=== PATIENT | female | born 1980 | race Caucasian/White ===

== ENCOUNTER 2016-10-28 07:11 | Emergency (ER) | payer OTHER ==
[~2016-10-28] VITALS: Ht 162.6 cm; Wt 90.9 kg
[2016-10-28 07:13] VITALS: BP 141/91; PULSE 89; RESP 15; O2SAT 98
--- NOTE | 2016-10-28 07:35 | ED.REPORT ---
HPI-Abd Pain F Under 38 Date of Service October 28, 2016 ED Provider: Linus Delgado MD The patient is a 36 year old female w/ a hx of PCOS who presents to the ED after she was woken from sleep by severe, right-sided back pain at 0500 this morning. She says this feels similar to her previous episode of kidney stones when she was with her son. Her menstrual cycle should be starting soon. Pt denies hematuria, fever, dysuria, and vaginal discharge. Nursing Notes Stated Complaint: KIDNEY PAIN Chief Complaint: Female Abdominal Pain Nursing Notes Reviewed: Yes Allergies: Coded Allergies: erythromycin base (Verified Allergy, Intermediate, 10/28/16) latex (Verified Allergy, Intermediate, 10/28/16) Scheduled Ciprofloxacin (Ciprofloxacin) 500 Mg Tablet 500 MG PO BID Tamsulosin (Flomax) 0.4 Mg Capsule 0.4 MG PO DAILY Scheduled PRN Ibuprofen (Ibuprofen) 800 Mg Tablet 800 MG PO TID PRN PRN For Pain General Time Seen by MD: 07:19 Chief Complaint Other (back pain) Hx Obtained From: Patient Arrived By: Walk-in Sudden in Onset?: Yes Onset Occurred: 1 - 4 hours ago Context of Onset: Sleeping Symptom Duration: Since onset Location: : Back (right sided) Quality: Painful Severity: Current: Severe Recent Healthcare: No recent doctor visit, No recent hospitalization Similar Sx Previous: No Past Medical History Past Medical History PCOS thyroid issues kidney stones Past Surgical History denies Smoking History Unknown if Ever Smoker Social History Other Social History: Good social support, , Local resident Ambulatory Status Independent Review of Systems Constitutional: Denies: Fever GI: Reports: Nausea Female: Denies: Dysuria, Hematuria, Vaginal discharge Musculoskeletal: Reports: Back pain Complete sys rev & neg: except as marked. Physical Exam Initial Vital Signs Vital Signs (First) Date Time Temp Pulse Resp B/P Pulse Ox O2 Delivery O2 Flow Rate FiO2 10/28/16 07:13 36.4 89 15 141/91 98 Room Air Initial VS: Reviewed Head / Eyes: Atraumatic, Normocephalic, PERRL ENT: Mucous membranes moist, Conjunctiva normal Neck: Supple, Non-tender Extremities: Vascular intact, Neuro intact, No swelling, No tenderness Skin: Warm, Dry General/Constitutional: Awake, Alert, Cooperative, Not toxic appearing Respiratory / Chest: Atraumatic, Breath sounds NL, Breath sounds = bilat, No respiratory distress, No rales, No rhonchi, No wheezing Cardiovascular: Heart rate NL, Regular rhythm, Heart sounds NL, No gallop, No murmurs, No rubs Abdomen: Atraumatic, Soft, Non-tender Back: Full range of motion left CVA tenderness Interpretation & Diagnostics Interpretation & Diagnostics: ABDOMINAL ULTRASOUND IMPRESSION: no acute findings Lab Results Interpretation Result Diagram: 10/28/16 0740 10/28/16 0740 Test 10/28/16 07:40 10/28/16 09:00 White Blood Count 11.1th/mm3 (3.8-10.1) Red Blood Count 5.14mil/mm3 (3.90-5.20) Hemoglobin 14.0g/dL (12.0-15.6) Hematocrit 41.9% (35.0-46.0) Mean Corpuscular Volume 81.5fL (81-100) Mean Corpuscular Hemoglobin 27.2pg (27.0-35.0) Mean Corpuscular Hemoglobin Concent 33.4% (32.0-37.0) Red Cell Distribution Width 13.3% (12.3-15.4) Platelet Count 318bil/L (150-400) Neutrophils (%) (Auto) 62.8% (40-74) Lymphocytes (%) (Auto) 27.0% (14-46) Monocytes (%) (Auto) 8.1% (4-12) Eosinophils (%) (Auto) 1.4% (0-5) Basophils (%) (Auto) 0.3% (0-3) Sodium Level 139mEq/L (134-144) Potassium Level 4.0mEq/L (3.5-5.2) Chloride Level 100mEq/L (97-108) Carbon Dioxide Level 25mmol/L (18-29) Blood Urea Nitrogen 14mg/dL (6-20) Creatinine 0.73mg/dL (0.57-1.00) Estimat Glomerular Filtration Rate 128mL/min (>59) Glucose Level 112mg/dL (60-99) Calcium Level 9.9mg/dL (8.5-10.1) Magnesium Level 2.0mg/dL (1.6-2.6) Total Bilirubin 0.4mg/dL (0.0-1.2) Aspartate Amino Transf (AST/SGOT) 17U/L (0-50) Alanine Aminotransferase (ALT/SGPT) 16U/L (0-32) Alkaline Phosphatase 125U/L (25-150) Total Protein 7.7g/dL (6.4-8.4) Albumin 4.2g/dL (3.4-5.0) Lipase 15U/L (13-60) Urine Color Yellow (YELLOW) Urine Appearance Slightly cloudy Urine pH 5.0 (5.0-8.0) Urine Specific [place] 1.025 (1.003-1.035) Urine Protein Negativemg/dL (NEG,TRACE) Urine Glucose (UA) Negativemg/dL (NEGATIVE) Urine Ketones Negativemg/dL (NEGATIVE) Urine Occult Blood Large (NEGATIVE) Urine Nitrite Negative (NEGATIVE) Urine Bilirubin Negative (NEGATIVE) Urine Urobilinogen Normalmg/dL (NORMAL) Urine Leukocyte Esterase Trace (NEGATIVE) Urine RBC 11-50/hpf (0-2) Urine WBC 6-10/hpf (0-5) Urine Epithelial Cells Many/hpf (NONE-MOD) Urine Crystals None seen (NONE SEEN) Urine Bacteria Moderate/hpf (NONE-FEW) Urine Hyaline Casts Rare/lpf (NONE) Urine Granular Casts None seen (NONE SEEN) Urine Waxy Casts None seen (NONE SEEN) Urine Red Blood Cell Casts None seen (NONE SEEN) Urine White Blood Cell Casts None seen (NONE SEEN) Urine Mucus Present (None Seen) Urine Trichomonas None seen (NONE SEEN) Urine Yeast None (NONE SEEN) Urinalysis Comment None Urine Culture Reflexed Indicated Re-Eval/Medical Decision Med Decision/Clinical Course Med Decision/Clinical Course: 36-year-old female history of kidney stones, PCO S presenting with right flank pain 1 day. Ultrasound shows no hydronephrosis or kidney stones. Labs are stable. Vital signs stable. Patient's pain resolved with Toradol. Urine suggests possible UTI. We will treat for UTI and will give consent Flomax cannot rule out nonvisualized stone. Discussed the patient and she would like no CT scan at this time. She was discharged home with antibiotics and Flomax with return precautions if any worsening pain, fevers, abdominal pain, nausea vomiting, any other new or worsening symptoms. Otherwise follow up with primary doctor Sunday. Re-Evaluation/Progress : Time of Eval: 09:25 Patient Status: Complete relief, Pain improved Re-Evaluation/Progress Note: Pt rechecked. Her pain is much better. Informed pt of US results and plan of treatment. F/U and RTER warnings given. Pt understands and agrees with plan. All questions addressed. Counseled Regarding: Diagnosis, Lab results, Need for follow-up, When/why to return to ED Discharge & Departure Primary Impression: UTI (urinary tract infection) Urinary tract infection type: site unspecified Hematuria presence: without hematuria Qualified Code: N39.0 - Urinary tract infection, site not specified Additional Impression: Flank pain Disposition: Home Discharge Condition All VS Reviewed: Yes Condition: Stable Patient Instructions: Urinary Tract Infection in Women (DC) Additional Instructions: The Ultrasound did not show any kidney stones. You may have already passed a stone or there are no stones large enough to cause an obstruction. Your urine does show slight bacteria. I am sending you home with prescriptions for Cipro and Flomax. Take as directed. Make sure you drink plenty of fluids and stay well hydrated. Take Ibuprofen and Tylenol as needed for pain. Follow up with your primary care physician in a few days. Return to the Emergency Department for any new or worsening symptoms including fever, nausea, vomiting, and diarrhea. I hope you feel better soon Referrals: [facility] Emma Attestation Portion of this note were transcribed by Alis Bautista. I, Dr. Delgado, personally performed the history, physical exam, and medical decision-making: I reviewed and confirmed the accuracy for the information in the transcribed note. Signed by: emma Nolasco, 10/28/16 0900 copies to: [facility] Linus Delgado MD October 28, 2016 07:35 Alis Bautista October 28, 2016 07:46
[2016-10-28] MEDS ORDERED: 0.9% Sodium Chloride 1,000 ML IV ONE (07:44)
[2016-10-28] MEDS ORDERED: Ondansetron 2 mg/mL 2 mL Inj IVPUSH PRN (07:45)
[2016-10-28 08:12] LABS: BASOPHILS % (AUTO) 0.3 % (0-3); EOSINOPHILS % (AUTO) 1.4 % (0-5); MONOCYTES % (AUTO) 8.1 % (4-12); Mean Corpuscular Hemoglobin 27.2 pg (27.0-35.0); Mean Corpuscular Volume 81.5 fL (81-100); NEUTROPHILS % (AUTO) 62.8 % (40-74); Platelet Count 318 bil/L (150-400)
[2016-10-28] MEDS ORDERED: IBUP800T28 PO (09:21)
[2016-10-28] MEDS ORDERED: CIPR-198 PO (09:21)
[2016-10-28] MEDS ORDERED: TAMS0.4C98 PO (09:21)
[2016-10-28 10:02] VITALS: BP 128/76; PULSE 78; RESP 12; O2SAT 95
[2016-10-28 10:02] LABS: COLOR,URINE YELLOW (YELLOW)
[2016-10-28 10:03] LABS: APPEARANCE,URINE SLIGHTLY CLOUDY (CLEAR,HAZY)
[2016-10-28 10:04] LABS: OCCULT BLOOD,URINE LARGE (NEGATIVE); UROBILINOGEN,URINE NORMAL (NORMAL)
--- NOTE | 2016-10-28 10:38 | DRSVH ---
PROCEDURE: US RENAL SONOGRAM INDICATIONS: L CVA tenderness h/o kidney stones TECHNIQUE: Real-time scanning was performed of the kidneys and bladder, with image documentation. COMPARISON: None. FINDINGS: Kidneys: Kidneys are normal in size. Right kidney measures 12.1 cm long; left kidney measures 13.0 cm long. Right renal cortical thickness is 1.3 cm; left renal cortical thickness is 1.4 cm. Renal c ortical echotexture is normal. No hydronephrosis or nephrolithiasis. No suspicious solid mass lesio ns. Bladder: Pre-void bladder volume is 98.6 mL. Post-void residual is 12.6 mL. Pre-void images demons trate no intraluminal masses or stones. On pre-void images, bilateral ureteral jets are noted with c olor Doppler interrogation. (Of note, ureteral jets may not be detectable in up to 25% of cases due to insufficient differences in specific gravity between ureteral and bladder urine). Miscellaneous: No free pelvic fluid. IMPRESSION: No evidence of obstruction. No visualized stone. Dictated by: Salina Rizzo M.D. on 10/28/2016 at 10:36 Approved by: Salina Rizzo M.D. on 10/28/2016 at 10:36
== END 2016-10-28 10:04 | disposition home or self-care (01) ==
LOC: SED 07:11
DX: N39.0 Urinary tract infection, site not specified (principal); Z88.1 Allergy status to other antibiotic agents; Z91.040 Latex allergy status
CPT/HCPCS: 36415; 76770; 80053; 81000; 81025; 83690; 83735; 85025; 87086; 87088; 96361; 96374; 96375; 99285; J1885; J2405; J7030